=== PATIENT | female | born 1945 | race Caucasian/White ===

== ENCOUNTER 2021-03-31 10:14 | Outpatient (REF) | payer MEDICARE, SELFPAY ==
[2021-03-31 10:41] LABS: MANUAL DIFF FLAG NO
[2021-03-31 11:08] LABS: Basophils Absolute Auto 0.1 X10*3/uL (0.0-0.2); Basophils Percent Auto 1.1 % (0-2); Eosinophils Absolute Auto 0.2 X10*3/uL (0.0-0.4); Eosinophils Percent Auto 3.9 % (0-4); Hematocrit 38.4 % (37.0-47.0); Hemoglobin 12.2 g/dl (12.0-16.0); Imm Gran Abs Auto 0.01 X10*3/uL (0.00-0.03); Imm Gran Pct Auto 0.2 % (0.0-0.4); Lymphocytes Absolute Auto 1.3 X10*3/uL (1.2-4.9); Lymphocytes Percent Auto 23.9 % (20-40); Mean Corpuscular HGB Conc 31.8 g/dl (31.0-35.0); Mean Corpuscular Hemoglobin 30.7 pg (27.0-33.0); Mean Corpuscular Volume 96.7 fL (80.0-98.0); Mean Platelet Volume 9.9 fL (9.4-12.3); Monocytes Absolute Auto 0.4 X10*3/uL (0.1-1.2); Monocytes Percent Auto 7.6 % (2-11); Neutrophils Absolute Auto 3.4 x10*3/uL (2.0-8.3); Neutrophils Percent Auto 63.3 % (45-73); Platelet Count 162 X10*3/uL (160-400); Red Blood Count 3.97 X10*6/uL (4.20-5.50); Red Cell Distribution Width 14.2 % (11.0-16.0); White Blood Count 5.4 X10*3/uL (4.8-10.8)
[2021-03-31 11:17] LABS: Appearance Urine HAZY; Color Urine YELLOW; Glucose Urine UA NEG (NEG); Leukocyte Esterase Urine 2+ (NEG); Nitrite Urine NEG (NEG); PH 5.5 (5.0-8.0); Specific Gravity - Urine 1.015 (1.005-1.025); UACC Culture Trigger YES; Urine Blood 3+ (NEG); Urine Ketones NEG (NEG); Urine Protein NEG (NEG-TRACE)
[2021-03-31 11:23] LABS: Prothrombin Time 11.9 SEC (9.9-13.0)
[2021-03-31 11:26] LABS: Partial Thromboplastin Time 32.5 SEC (24.1-38.0)
[2021-03-31 11:50] LABS: Alanine Aminotransferase 21 U/L (0-31); Albumin Level 3.7 g/dL (3.5-5.0); Alkaline Phosphatase 131 U/L (39-117); Anion Gap 10 (12-20); Aspartate Amino Transferase 38 U/L (5-31); Bilirubin Total 0.9 mg/dL (0.0-1.0); Blood Urea Nitrogen 17 mg/dL (9-16); Calcium 9.4 mg/dL (8.4-10.2); Carbon Dioxide 31 mmol/L (22-29); Chloride 101 mmol/L (96-108); Cholesterol 209 mg/dL; Estimated Glomerular Filt Rate 55; Glucose Random 92 mg/dL (60-115); HDL Cholesterol 43 mg/dL; LDL Cholesterol Calculated 125 mg/dl; Potassium 4.4 mmol/L (3.3-5.1); Sodium 138 mmol/L (135-145); Triglycerides 207 mg/dL
[2021-03-31 11:53] LABS: RBC Urine 0-2 /HPF (0); Squamous Epithelial Cell Urine 2+ /LPF; WBC Urine 50-75 /HPF (0-4)
[2021-03-31 11:54] LABS: Bacteria Urine 4+ /LPF; Mucus Urine 1+ /LPF; Renal Epithelial Cells Urine 1+ /LPF
[2021-03-31 11:58] LABS: Microalbum/Creatinine Ratio Ur 56.2 ug/mg cr
[2021-03-31 12:01] LABS: TSH reflex Free T4 3.16 uIU/mL (0.32-4.0)
[2021-03-31 12:16] LABS: Free T4 (Free Thyroxine) 0.64 ng/dL (0.71-1.85); Thyroid Stimulating Hormone 3.53 uIU/mL (0.32-4.0); Vitamin D 25-OH Total 14.9 ng/mL (>30)
== END 2021-03-31 10:15 | disposition home or self-care (01) ==
LOC: HO.LAB 10:14
PROVIDERS: PCP Internal Medicine; Visit Provider Internal Medicine
DX: Z01.818 Encounter for other preprocedural examination (principal); E03.9 Hypothyroidism, unspecified; E11.9 Type 2 diabetes mellitus without complications; E55.9 Vitamin D deficiency, unspecified; E78.00 Pure hypercholesterolemia, unspecified; I10 Essential (primary) hypertension
CPT/HCPCS: 36415; 80053; 80061; 81001; 82043; 82306; 84439; 84443; 85025; 85610; 85730; 87086; 87088; 87186

== ENCOUNTER → 2021-04-01 12:39 | Outpatient (REF) | payer MEDICARE, SELFPAY ==
--- NOTE | 2021-04-01 12:49 | ECG_ITS ---
Test Reason : preop Blood Pressure : / mmHG Vent. Rate : 070 BPM Atrial Rate : 070 BPM P-R Int : 140 ms QRS Dur : 084 ms QT Int : 460 ms P-R-T Axes : 025 041 080 degrees QTc Int : 496 ms Normal sinus rhythm Normal ECG When compared with ECG of 23-FEB-2014 08:58, Nonspecific T wave abnormality no longer evident in Anterior leads Referred By: Jaime Campuzano Electronically Signed By:TIA JUÁREZ
== END ==
LOC: HO.CARD 12:39
PROVIDERS: PCP Internal Medicine; Visit Provider Internal Medicine
DX: Z01.818 Encounter for other preprocedural examination (principal); I10 Essential (primary) hypertension; E11.9 Type 2 diabetes mellitus without complications; E78.00 Pure hypercholesterolemia, unspecified
CPT/HCPCS: 93005